=== PATIENT | male | born 1970 | race Caucasian/White ===

== ENCOUNTER 2019-03-23 17:05 | Emergency (ER) | payer BC, OTHER ==
[2019-03-23 17:25] VITALS: BP 151/86; PULSE 85; TEMP 98.1; BMI 38.9
[2019-03-23] MEDS ORDERED: KETOROLAC TROMETHAMINE 30 MG/1 ML VIAL IM ONE (17:51)
[2019-03-23] MEDS ORDERED: KETOROLAC TROMETHAMINE 30 MG/1 ML VIAL ONE (17:57)
[2019-03-23 18:16] LABS: BASO % 2.2 % (0-2.0); EOS % 0.5 % (0-4.5); HEMATOCRIT 47.8 % (35.4-49); HEMOGLOBIN 15.8 GM/dl (11.7-16.9); LYMPH % 18.2 % (8-40); MCH 30.2 pg (25.7-33.7); MCHC 32.9 g/dl (32.0-35.9); MEAN CELL VOLUME 91.7 fl (80-96); MEAN PLT VOLUME 8.8 fl (7.5-11.1); MONO % 9.2 % (3.8-10.2); NEUT % 69.9 % (42.8-82.8); PLATELET COUNT 253 K/MM3 (134-434); RBC 5.22 M/mm3 (4.00-5.60); RDW 12.3 % (11.9-15.9); WHITE BLOOD COUNT 9.4 K/mm3 (4.0-10.8)
[2019-03-23 18:29] LABS: CALCIUM 9.8 mg/dl (8.5-10); CREATININE 0.9 mg/dl (0.55-1.3); POTASSIUM 3.8 mmol/L (3.5-5.1)
[2019-03-23] MEDS ORDERED: KETOROLAC TROMETHAMINE 30 MG/1 ML VIAL IVPUSH ONE (18:33)
--- NOTE | 2019-03-23 18:34 | PDOC ---
Documentation entered by Brett Lane SCRIBE, acting as scribe for Cody Valle MD. Cody Valle MD: This documentation has been prepared by the [email or web address] Aiswarya, SCRIBE, under my direction and personally reviewed by me in its entirety. I confirm that the documentation accurately reflects all work, treatment, procedures, and medical decision making performed by me. History of Present Illness - General Chief Complaint: Back Pain Stated Complaint: LEFT BACK PAIN Time Seen by Provider: 03/23/19 17:24 History Source: Patient Exam Limitations: No Limitations - History of Present Illness Initial Comments: 03/23/19 18:12 The patient is a 48 year old male, with a significant PMH of HTN and kidney stones, who presents to the emergency department with back pain that began yesterday. The patient states non radiating sudden pain is located to the left flank. He states pain is similar to his last kidney stone.Denies any numbness or tingling. Denies any falls or trauma. Denies chest pain, shortness of breath , headache and dizziness.Denies fever, chills, nausea, and vomit. Denies dysuria, frequency, urgency and hematuria. Allergies: NKDA Past surgical history:None reported Social history:Former smoker and occasional drinker. PCP: Dave Rowell Past History - Past Medical History Allergies/Adverse Reactions: Allergies Allergy/AdvReac Type Severity Reaction Status Date / Time No Known Allergies Allergy Verified 03/23/19 17:08 Home Medications: Ambulatory Orders Unk Bp Pill 1 tab PO DAILY 03/23/19 COPD: No HTN: Yes Kidney Stones: Yes - Psycho Social/Smoking Cessation Hx Smoking History: Former smoker Have you smoked in the past 12 months: No Information on smoking cessation initiated: No Hx Alcohol Use: (occasional) Review of Systems - Review of Systems Able to Perform ROS?: Yes Comments:: 03/23/19 18:04 A complete review of 10 out of 10 review of systems is taken and is negative apart from what is previously mentioned below and in the HPI. *Physical Exam - Vital Signs Last Vital Signs Temp Pulse Resp BP Pulse Ox 98.1 F 85 18 151/86 100 03/23/19 17:05 03/23/19 17:05 03/23/19 17:05 03/23/19 17:05 03/23/19 17:05 - Physical Exam Comments: 03/23/19 18:04 Vitals: Triage Vital signs reviewed General Appearance: no acute distress, well nourished well developed, Cardiac: Regular rate and rhythm, no murmurs, no rubs, no gallops, Lungs: Clear to auscultation bilateral, good air movement bilaterally, Abdomen: Soft, nondistended, normal bowel sounds, nontender to palpation Back: +Mild paraspinal tenderness on palpation. Extremities: Full range of motion to all extremities, no cyanosis, clubbing, or edema Skin: Warm and dry, no rashes or lesions, no petechiae Neuro: AOX3; Strength intact to all extremities, Sensation intact to all extremities, Psych: normal mood, normal affect ED Treatment Course - LABORATORY CBC & Chemistry Diagram: 03/23/19 18:05 03/23/19 18:05 - ADDITIONAL ORDERS Additional order review: Laboratory Results 03/23/19 03/23/19 18:05 17:45 Sodium 137 Potassium 3.8 Chloride 99 Carbon Dioxide 27 Anion Gap 11 BUN 18.0 Creatinine 0.9 Est GFR (CKD-EPI)AfAm 118.30 Est GFR (CKD-EPI)NonAf 102.07 Random Glucose 96 Calcium 9.8 Urine Color Yellow Urine Appearance Clear Urine pH 6.5 Urine Protein Negative Urine Glucose (UA) Negative Urine Ketones Negative Urine Blood Negative Urine Nitrite Negative Urine Bilirubin Negative Urine Urobilinogen 0.2 Ur Leukocyte Esterase Negative 03/23/19 18:05 RBC 5.22 MCV 91.7 MCHC 32.9 RDW 12.3 MPV 8.8 Neutrophils % 69.9 Lymphocytes % 18.2 Monocytes % 9.2 Eosinophils % 0.5 Basophils % 2.2 H Medical Decision Making - Medical Decision Making 03/23/19 18:33 2-day history of left flank pain somewhat similar to kidney stones but not as severe upon arrival to the emergency department patient's pain has resolved hemodynamically stable not reproducible on repeat examination no hematuria and blood laboratory analysis within normal limits patient is comfortable with no pain at this time no indication for imaging at this time he is instructed to return to the ED for any severe worsening discomfort any migrating or radiating pain fever chills vomiting or for any concerns Discharge - Discharge Information Problems reviewed: Yes Clinical Impression/Diagnosis: Flank pain Condition: Stable Disposition: HOME - Admission No - Follow up/Referral Referrals: Dave Rowell MD [Primary Care Provider] - Pilo Hemphill MD [Staff Physician] - - Patient Discharge Instructions Patient Printed Discharge Instructions: DI for Flank Pain Additional Instructions: Drink plenty fluids. Return to the ED for any fever severe worsening pain vomiting or for any concerns otherwise follow-up with your primary care provider this week. - Post Discharge Activity
== END 2019-03-23 18:55 | disposition home or self-care (01) ==
LOC: FER 17:05
PROC: 3E0333Z Introduction of Anti-inflammatory into Peripheral Vein, Percutaneous Approach (ICD-10-PCS; principal; 2019-03-23)
DX: R10.32 Left lower quadrant pain (principal); Z87.891 Personal history of nicotine dependence; I10 Essential (primary) hypertension; N20.0 Calculus of kidney
CPT/HCPCS: 36415; 80048; 81003; 85025; 99284-25

== ENCOUNTER 2021-12-07 13:44 | Emergency (ER) | payer BC, OTHER ==
[2021-12-07 13:55] VITALS: BP 143/78; PULSE 78; TEMP 98.7; BMI 39.5
[2021-12-07 15:07] LABS: HEMATOCRIT 41.6 % (35.4-49); HEMOGLOBIN 14.7 G/dL (11.7-16.9); MCH 31.3 pg (25.7-33.7); MCHC 35.2 g/dl (32.0-35.9); MEAN CELL VOLUME 88.8 fl (80-96); PLATELET COUNT 269.5 10^3/uL (134-434); RBC 4.68 10^6/uL (4.00-5.60); RDW 13.4 % (11.9-15.9); WHITE BLOOD COUNT 6.6 10^3/uL (4.0-10.8)
[2021-12-07 15:14] LABS: ALBUMIN 3.6 g/dl (3.4-5.0); CALCIUM 9.1 mg/dl (8.5-10); CREATININE 0.9 mg/dl (0.55-1.3); TOT PROT 6.6 g/dl (6.4-8.2)
== END 2021-12-07 16:05 | disposition home or self-care (01) ==
LOC: FER 13:44
DX: R19.7 Diarrhea, unspecified (principal)
CPT/HCPCS: 36415; 80053; 82272; 85027; 87045; 87046; 87324; 87449; 99283-25

== ENCOUNTER 2023-07-29 17:12 | Emergency (ER) | payer BC, OTHER ==
[2023-07-29 17:39] VITALS: BP 136/90; PULSE 86; RESP 18; TEMP 98.4; BMI 39.5
[2023-07-29] MEDS ORDERED: DALBAVANCIN HCL 500 MG VIAL (RESTRICTED TO ID ONLY) IVPB ONE (18:20)
[2023-07-29] MEDS: DALBAVANCIN HCL 1,500 MG in DEXTROSE 5%-WATER - 500 ML IVPB ONE (18:35)
== END 2023-07-29 19:06 | disposition home or self-care (01) ==
LOC: FER 17:12
DX: L03.116 Cellulitis of left lower limb (principal); R60.9 Edema, unspecified
CPT/HCPCS: 93970-TC; 99284-25; J0875